=== PATIENT | male | born 1955 | race Caucasian/White ===

== ENCOUNTER 2016-05-26 15:52 | Emergency (ER) | payer OTHER ==
[2016-05-26 16:27] VITALS: RESP 16
--- NOTE | 2016-05-26 16:47 | UCPHY ---
H & P Patient Type: New HPI/ROS: CHIEF COMPLAINT: Cough, wheezing. HISTORY OF PRESENT ILLNESS: The patient is a 60-year-old male who presents with cough and wheezing for 5 days. 3 days ago he developed wheezing and mild sore throat. The cough occasionally wakes him up at night. He denies shortness of breath, chest pain, fever. He denies known sick contact but travels 4 days a week for his job. REVIEW OF SYSTEMS: Constitutional - no fevers or chills. Eyes - no discharge, or injection ENT - no earache, change in hearing, difficulty swallowing, though he does have a mild sore throat. Respiratory - see above Musculoskeletal - no joint or muscle pain. Integument - no rashes. Neurological - no headache, numbness, tingling, or paresthesias. No focal motor weakness. Immunological - no swelling or lymphadenopathy. Past Medical/Surgical History: Blocked coronary artery, bronchitis. Social History: Nonsmoker. Smoking Status: Never smoked Physical Exam: Gen: Well developed, well nourished. Nontoxic. HEENT: Normocephalic. Ears: TMs are clear. Hearing normal. Eyes: PERRL. No conjunctival injection or pallor. no jaundice. Nose: No nasal discharge. Sinuses are nontender. Throat: Membranes are moist. Oropharynx is without erythema or exudate. Normal phonation. Lungs: Good air entry into both lungs. Mild diffuse wheeze. No air hunger. No respiratory distress. Skin: Good color, without pallor. There is no diaphoresis. Skin is warm and dry , without diaphoresis. Intact without rashes Constitutional: Initial Vital Signs Temperature (C) 37.2 C 05/26/16 16:24 Heart Rate 82 05/26/16 16:24 Respiratory Rate 16 05/26/16 16:24 Blood Pressure 162/66 H 05/26/16 16:24 O2 Sat (%) 93 05/26/16 16:24 O2 Delivery Mode Room Air Allergies/Adverse Reactions: No Known Allergies Allergy (Verified 05/26/16 16:26) Home Medications: Medication Instructions Recorded Albuterol [Proventil Inhaler HFA 2 puffs IH QID #1 mdi 05/26/16 (*)] Azithromycin [Zithromax] 250 mg PO DAILY #6 tab 05/26/16 Benzonatate 200 mg PO TID PRN #28 capsule 05/26/16 Multivitamin 05/26/16 predniSONE [Prednisone] 30 mg PO BID #30 tablet 05/26/16 Medical Decision Making ED Course/Re-evaluation: He has only a mild wheeze thereby does not need an inhaler a ren treatment at this time. He will do best if he could do more course of Proventil with prednisone. He will have a backup prescription for benzonatate in case he has a cough that requires suppression. Furthermore in case he develops fever he will have Zithromax Rx available. Differential Diagnosis: Diagnostic considerations include, but are not limited to, the following: URI, sinusitis, pharyngitis, otitis media, pneumonia, allergy. Departure - Departure Disposition: Home, Routine, Self-Care Clinical Impression: Bronchitis, Wheezing Condition: Good Instructions: Acute Bronchitis (ED) Additional Instructions: Follow up with your primary care provider and an orthopedic surgeon next week when you return home if symptoms are not improving. Return in the meantime if you have continued concerns or any worsening of condition. Take the steroid and inhaler as prescribed. Take the antibiotics if you're symptoms worsen or if you develop fever. The benzonatate is to suppress the cough if you start developing rib strain or having trouble sleeping at night Referrals: Unknown,Unknown [Primary Care Provider] - As per Instructions Prescriptions: Albuterol [Proventil Inhaler HFA (*)] 2 puffs IH QID #1 mdi Azithromycin [Zithromax] 250 mg PO DAILY #6 tab Benzonatate 200 mg PO TID PRN #28 capsule PRN Reason: Cough, Moderate predniSONE [Prednisone] 30 mg PO BID #30 tablet - PQRS PQRS Measurement: Not applicable. Report Scribed for: Rosalio White Report Scribed by: Marek Hernandez Date of Report: 05/26/16 Time of Report: 16:45 Physician Review and Approval Statement: 05/26/16 16:45 Portions of this note were transcribed by a biomedical engineer. I personally performed a history, physical exam, medical decision making, and confirmed accuracy of information the transcribed note.
[2016-05-26 17:31] VITALS: BP 158/72; PULSE 79; TEMP 97.9; O2SAT 96
== END 2016-05-26 17:31 | disposition home or self-care (01) ==
LOC: CED 15:52
DX: J40 Bronchitis, not specified as acute or chronic (principal); R06.2 Wheezing
CPT/HCPCS: G0463-PO